=== PATIENT | female | born 1960 | race Caucasian/White ===

== ENCOUNTER 2016-10-08 20:53 | Emergency (ER) | payer BC ==
[~2016-10-08] VITALS: Ht 162.6 cm; Wt 77.3 kg
[~2016-10-08 20:53] MED LIST: BACTRIM DS 8001 TAB PO; CIPRO 500MG TA500 MG PO; CLEOCIN HCL300 MG PO; CONCERTA36 MG PO; CYMBALTA 30MG30 MG PO; DOXYCYCLINE 10100 MG PO; ESTRACE 1MG1 MG/TAB PO; HCTZ 25MG TAB25 MG PO; K-TAB20 PO; KLOR-CON M2020 MEQ PO; LEVOXYL0.075 MG PO; LIPITOR 40MG TA40 MG PO; MULTIPLE VITAMI1 CAP PO; NORCO 325 MG-7.1 TAB; PERCOCET 325 MG1 TA2 PO; PREDNISONE10 MG PO; PROTONIX 40MG T40 MG PO; PROZAC 20MG20 MG PO; TRILIPIX 135MG PO
[2016-10-08 20:55] VITALS: TEMP 99.2
[2016-10-08] MEDS ORDERED: SYNTHROID0.088 MG/T PO (21:37)
[2016-10-08 22:15] LABS: BASO % 0.3 % (0.0-2.0); EOS # 0.1 (0.0-0.7); EOS % 0.4 % (0-4.0); GRAN # 9.7 (1.4-6.5); GRAN % 85.3 % (42.2-75.2); HEMATOCRIT 37.8 % (37.0-47.0); HEMOGLOBIN 12.6 g/dl (12.5-16.0); MEAN CELL VOLUME 87 fl (80.0-100.0); MEAN CORPUSCULAR HEMOGLOBIN 29 pg (27.0-31.0); MEAN CORPUSCULAR HGB CONC 33 g/dl (33.0-37.0); MEAN PLATELET VOLUME 9.3 fl (7.4-10.4); MONO # 0.5 (0.1-0.6); MONO % 4.6 % (1.7-9.3); PLATELET COUNT 316 K/mm3 (130-400); RED BLOOD COUNT 4.36 M/mm3 (4.10-5.30); REDCELL DISTRIBUTION WIDTH-CV 13.2 % (11.5-14.5); WHITE BLOOD COUNT 11.4 K/mm3 (4.8-10.8)
[2016-10-08 22:32] LABS: ADJUSTED CALCIUM 8.7 mg/dL (8.4-10.2); ALBUMIN 3.7 gm/dL (3.5-5.0); BILIRUBIN,TOTAL 0.7 mg/dL (0.0-1.0); CALCIUM 8.5 mg/dL (8.4-10.2); CREATININE, serum 0.65 mg/dL (0.52-1.25); POTASSIUM 3.1 mmol/L (3.4-5.0); TOTAL PROTEIN 6.6 gm/dL (6.4-8.2)
[2016-10-08] MEDS ORDERED: MEDROL 4MG DOSPA4 MG PO (22:40)
[2016-10-08 22:44] LABS: ERYTHROCYTE SEDIMENTATION RATE 22 mm/hr (0-30)
[2016-10-08 22:55] LABS: C-REACTIVE PROTEIN 15.4 mg/dL (0.0-0.9)
[2016-10-08 23:08] VITALS: BP 122/78; PULSE 90
== END 2016-10-08 23:09 | disposition home or self-care (01) ==
LOC: COL.ER 20:53
PROVIDERS: Emergency Medicine
DX: M06.861 Other specified rheumatoid arthritis, right knee (principal); R19.7 Diarrhea, unspecified
CPT/HCPCS: J2930; J7030

== ENCOUNTER → 2016-12-28 | Outpatient (CLI) | payer BC ==
[~2016-12-28] MED LIST changes: +MEDROL 4MG DOSPA4 MG PO; +SYNTHROID0.088 MG/T PO
== END ==
LOC: COL.VAS 12:59
DX: I08.2 Rheumatic disorders of both aortic and tricuspid valves (principal); I49.3 Ventricular premature depolarization; I49.49 Other premature depolarization

== ENCOUNTER → 2017-01-03 | Outpatient (CLI) | payer BC | LOC: COL.CARD 01-01 10:45 | DX: I49.49 Other premature depolarization (principal) ==

== ENCOUNTER → 2017-05-08 | Outpatient (CLI) | payer BC ==
[~2017-05-08] MED LIST changes: -CYMBALTA 30MG30 MG PO; +CYMBALTA 60MG60 MG PO; +DRYSOL 35 ML35 ML; +PRILOTC PO
== END ==
LOC: BHSO 10:52
DX: F33.1 Major depressive disorder, recurrent, moderate (principal)

== ENCOUNTER 2017-05-14 09:16 | Day surgery (SDC) | payer BC ==
[~2017-05-14] VITALS: Ht 162.6 cm; Wt 83.2 kg
[~2017-05-14 09:16] MED LIST changes: -DRYSOL 35 ML35 ML; -PRILOTC PO
[2017-05-14 10:15] VITALS: BP 130/96; PULSE 76; TEMP 97.3
[2017-05-14] MEDS ORDERED: PRILOTC PO (10:49)
[2017-05-14] MEDS ORDERED: DRYSOL 35 ML35 ML (10:55)
[2017-05-14 12:24] VITALS: BP 137/74; PULSE 76; TEMP 97.1
[2017-05-14 12:40] VITALS: BP 117/72; PULSE 74
[2017-05-14 12:55] VITALS: BP 113/77; PULSE 74
[2017-05-14 13:10] VITALS: BP 122/78; PULSE 69
[2017-05-14 14:42] VITALS: BP 113/69; PULSE 75
== END 2017-05-14 13:45 | disposition home or self-care (01) ==
LOC: SDCO 09:16
DX: K63.5 Polyp of colon (principal); K62.1 Rectal polyp; K64.0 First degree hemorrhoids; K58.9 Irritable bowel syndrome, unspecified; K21.9 Gastro-esophageal reflux disease without esophagitis; E03.9 Hypothyroidism, unspecified; I10 Essential (primary) hypertension; E78.5 Hyperlipidemia, unspecified; E11.9 Type 2 diabetes mellitus without complications; K75.81 Nonalcoholic steatohepatitis (NASH); Z90.710 Acquired absence of both cervix and uterus; Z90.721 Acquired absence of ovaries, unilateral; Z90.79 Acquired absence of other genital organ(s)
CPT/HCPCS: OP; J2250; J3010; J7030

== ENCOUNTER → 2017-05-23 | Outpatient (CLI) | payer BC ==
[~2017-05-23] MED LIST changes: +DRYSOL 35 ML35 ML; +PRILOTC PO
== END ==
LOC: BHSO 12:49
DX: F33.1 Major depressive disorder, recurrent, moderate (principal)

== ENCOUNTER → 2017-05-24 | Outpatient (CLI) | payer BC | LOC: BHSO 10:53 | DX: F33.1 Major depressive disorder, recurrent, moderate (principal) | CPT/HCPCS: G0463 ==

== ENCOUNTER → 2017-06-03 | Outpatient (CLI) | payer BC | LOC: BHSO 12:56 | DX: F31.31 Bipolar disorder, current episode depressed, mild (principal) ==

== ENCOUNTER → 2017-06-17 | Outpatient (CLI) | payer BC | LOC: BHSO 13:13 | DX: F31.81 Bipolar II disorder (principal) ==

== ENCOUNTER → 2017-06-27 | Outpatient (CLI) | payer BC | LOC: BHSO 14:19 | DX: F31.73 Bipolar disorder, in partial remission, most recent episode manic (principal) | CPT/HCPCS: G0463 ==

== ENCOUNTER → 2017-07-04 | Outpatient (CLI) | payer BC | LOC: MC.RAD 11:20 | DX: Z12.31 Encounter for screening mammogram for malignant neoplasm of breast (principal) ==

== ENCOUNTER → 2017-07-25 | Outpatient (CLI) | payer BC | LOC: BHSO 14:05 | DX: F31.81 Bipolar II disorder (principal) ==

== ENCOUNTER → 2017-08-15 | Outpatient (CLI) | payer BC | LOC: BHSO 11:00 | DX: F31.81 Bipolar II disorder (principal) ==

== ENCOUNTER 2017-09-10 09:42 | Observation (INO) | payer BC ==
[~2017-09-10] VITALS: Ht 162.6 cm; Wt 84.3 kg
[~2017-09-10 09:42] MED LIST changes: -DRYSOL 35 ML35 ML; +DRYSOL 35 ML35 ML TOP
[2017-09-10 10:09] LABS: BASO # 0.1 (0.0-0.2); EOS # 0.2 (0.0-0.7); EOS % 3.4 % (0-4.0); GRAN # 2.9 (1.4-6.5); GRAN % 56.9 % (42.2-75.2); HEMATOCRIT 38.2 % (37.0-47.0); HEMOGLOBIN 12.7 g/dl (12.5-16.0); LYMPH # 1.6 (1.2-3.4); LYMPH % 32.1 % (20.0-51.0); MEAN CELL VOLUME 89 fl (80.0-100.0); MEAN CORPUSCULAR HEMOGLOBIN 30 pg (27.0-31.0); MEAN CORPUSCULAR HGB CONC 33 g/dl (33.0-37.0); MEAN PLATELET VOLUME 8.9 fl (7.4-10.4); MONO # 0.3 (0.1-0.6); MONO % 6.2 % (1.7-9.3); PLATELET COUNT 355 K/mm3 (130-400); REDCELL DISTRIBUTION WIDTH-CV 13.2 % (11.5-14.5)
[2017-09-10 10:17] LABS: ALANINE AMINOTRANSFERASE 49 U/L (9-52); ALBUMIN 3.8 gm/dL (3.5-5.0); ALKALINE PHOSPHATASE 58 U/L (50-136); ANION GAP 9 mmol/L (7-16); AST,SGOT 30 U/L (15-37); BILIRUBIN,TOTAL 0.2 mg/dL (0.0-1.0); BLOOD UREA NITROGEN 24 mg/dL (7-17); C-REACTIVE PROTEIN 0.7 mg/dL (0.0-0.9); CARBON DIOXIDE 26 mmol/L (22-30); CHLORIDE 103 mmol/L (98-107); CREATININE, serum 0.71 mg/dL (0.52-1.25); GLUCOSE 136 mg/dL (74-106); LIPASE 91 U/L (23-300); POTASSIUM 3.8 mmol/L (3.4-5.0); SODIUM 138 mmol/L (137-145); TOTAL PROTEIN 6.8 gm/dL (6.4-8.2)
[2017-09-10 10:28] LABS: TROPONIN-I < 0.012 ng/mL (0.000-0.034)
[2017-09-10] MEDS ORDERED: MUCINEX 60600 MG/TA1 PO (11:31)
[2017-09-10] MEDS ORDERED: SUDAFED30 MG PO (11:32)
[2017-09-10] MEDS ORDERED: LAMICTAL 100MG100 MG PO (11:33)
[2017-09-10] MEDS ORDERED: ASPIRIN 32325 MG/TAB PO (11:35)
[2017-09-10 15:05] VITALS: BP 131/73; PULSE 69; TEMP 98.4
[2017-09-10 20:49] VITALS: BP 142/77; PULSE 70; TEMP 98.6
[2017-09-10 23:55] VITALS: BP 147/69; PULSE 64; TEMP 98.6
[2017-09-11 03:49] VITALS: BP 127/98; PULSE 67; TEMP 97.5
[2017-09-11 06:35] VITALS: BP 127/98; PULSE 67
[2017-09-11 07:35] LABS: CHOLESTEROL 129 mg/dL (120-200); TRIGLYCERIDE 348 mg/dL
[2017-09-11 07:36] LABS: CHOLESTEROL RISK RATIO 4.3; HDL CHOLESTEROL 30 mg/dL; LDL CHOLESTEROL 29 mg/dL
[2017-09-11 07:45] VITALS: BP 132/72; PULSE 64; TEMP 98
[2017-09-11 07:47] LABS: TROPONIN-I < 0.012 ng/mL (0.000-0.034)
[2017-09-11 12:19] VITALS: BP 154/94; PULSE 84; TEMP 98.2
[2017-09-11] MEDS ORDERED: NITROSTAT0.4 MG/TAB SL (16:37)
== END 2017-09-11 17:05 | disposition home or self-care (01) ==
LOC: COL.ER 09:42 → MEDICAL 10:45
PROVIDERS: Emergency Medicine
DX: R07.9 Chest pain, unspecified (principal); E03.9 Hypothyroidism, unspecified; I10 Essential (primary) hypertension; E66.9 Obesity, unspecified; K21.9 Gastro-esophageal reflux disease without esophagitis; F32.9 Major depressive disorder, single episode, unspecified; Z79.82 Long term (current) use of aspirin; Z79.52 Long term (current) use of systemic steroids; Z88.1 Allergy status to other antibiotic agents; Z88.8 Allergy status to other drugs, medicaments and biological substances; Z82.49 Family history of ischemic heart disease and other diseases of the circulatory system
CPT/HCPCS: A9502; G0378

== ENCOUNTER → 2017-09-25 | Outpatient (CLI) | payer BC ==
[~2017-09-25] MED LIST changes: +ASPIRIN 32325 MG/TAB PO; +LAMICTAL 100MG100 MG PO; +MUCINEX 60600 MG/TA1 PO; +NITROSTAT0.4 MG/TAB SL; +SUDAFED30 MG PO
== END ==
LOC: COL.CARD 09-16 09:30
DX: R42 Dizziness and giddiness (principal)

== ENCOUNTER → 2017-09-30 | Outpatient (CLI) | payer BC | LOC: BHSO 14:56 | DX: F31.81 Bipolar II disorder (principal) ==

== ENCOUNTER → 2017-10-17 | Outpatient (CLI) | payer BC | LOC: BHSO 13:55 | DX: F31.81 Bipolar II disorder (principal) ==

== ENCOUNTER → 2017-11-28 | Outpatient (CLI) | payer BC | LOC: BHSO 11:06 | DX: F31.11 Bipolar disorder, current episode manic without psychotic features, mild (principal) ==

== ENCOUNTER → 2017-12-31 | Outpatient (CLI) | payer BC | LOC: BHSO 14:57 | DX: F31.81 Bipolar II disorder (principal) ==

== ENCOUNTER 2018-01-10 16:20 | Emergency (ER) | payer BC ==
[~2018-01-10] VITALS: Ht 162.6 cm; Wt 84.1 kg
[2018-01-10 16:35] VITALS: BP 128/75; TEMP 98.2
[2018-01-10] MEDS ORDERED: AMOXICILLIN 8751 TAB PO (18:09)
[2018-01-10 18:27] VITALS: PULSE 78
== END 2018-01-10 18:24 | disposition home or self-care (01) ==
LOC: COL.ER 16:20
DX: S91.011A Laceration without foreign body, right ankle, initial encounter (principal); I10 Essential (primary) hypertension; F32.9 Major depressive disorder, single episode, unspecified; F90.9 Attention-deficit hyperactivity disorder, unspecified type; E03.9 Hypothyroidism, unspecified; M19.90 Unspecified osteoarthritis, unspecified site; Z79.82 Long term (current) use of aspirin; W26.8XXA Contact with other sharp object(s), not elsewhere classified, initial encounter; Y92.009 Unspecified place in unspecified non-institutional (private) residence as the place of occurrence of the external cause

== ENCOUNTER → 2018-01-14 | Outpatient (CLI) | payer BC ==
[~2018-01-14] MED LIST changes: +AMOXICILLIN 8751 TAB PO
== END ==
LOC: BHSO 14:54
DX: F31.81 Bipolar II disorder (principal)

== ENCOUNTER → 2018-02-13 | Outpatient (CLI) | payer BC | LOC: BHSO 15:07 | DX: F31.81 Bipolar II disorder (principal) ==

== ENCOUNTER → 2018-03-11 | Outpatient (CLI) | payer BC | LOC: BHSO 14:57 | DX: F31.81 Bipolar II disorder (principal) ==

== ENCOUNTER → 2018-04-09 | Outpatient (CLI) | payer BC | LOC: BHSO 14:58 | DX: F31.81 Bipolar II disorder (principal) ==

== ENCOUNTER → 2018-07-07 | Outpatient (CLI) | payer BC | LOC: MC.RAD 11:20 | DX: Z12.31 Encounter for screening mammogram for malignant neoplasm of breast (principal); N64.89 Other specified disorders of breast ==

== ENCOUNTER → 2018-07-11 | Outpatient (CLI) | payer BC | LOC: MC.RAD 09:00 | DX: N64.89 Other specified disorders of breast (principal) | CPT/HCPCS: G0279 ==

== ENCOUNTER → 2018-07-24 | Outpatient (CLI) | payer BC | LOC: BHSO 09:55 | DX: F31.81 Bipolar II disorder (principal) ==

== ENCOUNTER → 2020-08-30 | Outpatient (CLI) | payer BC | LOC: MC.RAD 13:00 | DX: Z12.31 Encounter for screening mammogram for malignant neoplasm of breast (principal) ==

== ENCOUNTER → 2021-04-12 | Outpatient (CLI) | payer BC | LOC: DIA.ED 08:36 | DX: E11.9 Type 2 diabetes mellitus without complications (principal); Z79.84 Long term (current) use of oral hypoglycemic drugs | CPT/HCPCS: G0108 ==